=== PATIENT | female | born 1985 | race Caucasian/White ===

== ENCOUNTER 2016-02-17 09:55 | Emergency (ER) | payer OTHER ==
[2016-02-17 11:51] VITALS: BP 123/83
--- NOTE | 2016-02-17 12:24 | UC ---
Respiratory Complaint HPI - HPI Summary HPI Summary: Cough, aches, chest congestion, laryngitis starting 4 days ago. Denies trouble breathing or measured fevers. - History of Current Complaint Chief Complaint: UCRespiratory Stated Complaint: COUGH Time Seen by Provider: 02/17/16 12:01 Hx Obtained From: Patient Hx Last Menstrual Period: IUD ?: No Onset/Duration: Gradual Onset, Lasting Days Timing: Constant Severity Initially: Mild Severity Currently: Moderate Character: Cough: Productive Aggravating Factors: Exertion Alleviating Factors: Bronchodilator, Upright Position Associated Signs And Symptoms: Positive: Chills, URI, Nasal Congestion. Negative: Fever - Allergies/Home Medications Allergies/Adverse Reactions: Allergies Allergy/AdvReac Type Severity Reaction Status Date / Time Penicillins Allergy Hallucinati Verified 02/17/16 11:51 ons PMH/Surg Hx/FS Hx/Imm Hx Endocrine History Of: Denies: Diabetes, Thyroid Disease, Hypothyroidism Cardiovascular History Of: Denies: Cardiac Disorders, Hypertension Respiratory History Of: Reports: Asthma Denies: COPD GI/ History Of: Denies: Ulcer Psychological History Of: Denies: Anxiety, Depression - Surgical History Surgical History: Yes Surgery Procedure, Year, and Place: appy; tonsils. - Family History Known Family History: Positive: Hypertension - Social History Occupation: Employed Full-time Lives: With Family Alcohol Use: Rare Substance Use Type: None Smoking Status (MU): Never Smoked Tobacco - Immunization History Most Recent Influenza Vaccination: fall 2012 Most Recent Tetanus Shot: up to date Review of Systems Constitutional: Chills, Fatigue Skin: Negative Eyes: Negative ENT: Sore Throat, Nasal Discharge Respiratory: Cough Cardiovascular: Negative Gastrointestinal: Negative Genitourinary: Negative Motor: Negative Neurovascular: Negative Musculoskeletal: Negative Neurological: Negative Psychological: Negative All Other Systems Reviewed And Are Negative: Yes Physical Exam Triage Information Reviewed: Yes Appearance: Well-Appearing, No Pain Distress, Obese Vital Signs: Initial Vital Signs Temp 98.9 F 02/17/16 11:48 Pulse 80 02/17/16 11:48 Resp 20 02/17/16 11:48 BP 123/83 02/17/16 11:48 Pulse Ox 100 02/17/16 11:48 Vital Signs Reviewed: Yes Eye Exam: Normal Eyes: Positive: Conjunctiva Clear ENT: Positive: Hearing grossly normal, Pharynx normal, Nasal congestion, TMs normal, Muffled/hoarse voice - hoarseness Dental Exam: Normal Neck exam: Normal Neck: Positive: Supple, Nontender, No Lymphadenopathy Respiratory: Positive: Chest non-tender, Lungs clear, Normal breath sounds, No respiratory distress, No accessory muscle use Cardiovascular Exam: Normal Cardiovascular: Positive: RRR, No Murmur Musculoskeletal Exam: Normal Neurological Exam: Normal Psychological Exam: Normal Skin Exam: Normal UC Diagnostic Evaluation - Laboratory O2 Sat by Pulse Oximetry: 100 Respiratory Course/Dx - Differential Dx/Diagnosis Provider Diagnoses: URI, likely viral. laryngitis Discharge - Discharge Plan Condition: Stable Disposition: HOME Prescriptions: Guaifenesin-Codeine [Guaiatussin AC] 5 - 10 ml PO Q6H #120 ml MDD 40mL Patient Education Materials: Acute Bronchitis (ED), Laryngitis (ED) Forms: *Work Release Referrals: Gina Dooley MD [Primary Care Provider] - If Needed Additional Instructions: Call or return if you develop increasing fever, shortness of breath, chest pain , bloody sputum, or otherwise worsen. If you have not improved at all after several days, contact your primary care physician or return here.
== END 2016-02-17 12:21 | disposition home or self-care (01) ==
LOC: UCEAST 09:55
DX: J04.0 Acute laryngitis (principal)
CPT/HCPCS: 99212; G0463

== ENCOUNTER 2016-03-04 14:07 | Emergency (ER) | payer OTHER ==
[2016-03-04 14:31] VITALS: BP 138/82
--- NOTE | 2016-03-04 14:48 | UC ---
Eye Complaint HPI - HPI Summary HPI Summary: 31 year old female with complaints of left eye pain and swelling on the lower lid x 3 days. Pt states the painful with first symptoms but warm packs last evening has relieved the discomfort. Denies visual disturbance. Reports using old contacts because her contacts are back ordered. - History of Current Complaint Chief Complaint: UCEye Stated Complaint: EYE COMPLAINT Time Seen by Provider: 03/04/16 14:35 Hx Obtained From: Patient Hx Last Menstrual Period: iud ?: No Onset/Duration: Sudden Onset, Lasting Days - 3, Still Present Timing: Constant Severity Initially: Mild Severity Currently: Mild Aggravating Factor(s): Nothing Alleviating Factor(s): Nothing Associated Signs And Symptoms: Positive: Swelling - lower lateral left lid. Negative: Photophobia, Drainage (Clear), Drainage (Purulent), Vision Impairment Bilateral, Vision Impairment Right, Vision Impairment Left, Fever Related History: Other - stye - Risk Factors Penetrating Injury Risk Factor: Negative Globe Rupture Risk Factors: Negative Acute Glaucoma Risk Factors: Negative Optic Artery Occlusion Risk Factors: Negative - Allergies/Home Medications Allergies/Adverse Reactions: Allergies Allergy/AdvReac Type Severity Reaction Status Date / Time Penicillins Allergy Hallucinati Verified 02/17/16 11:51 ons Home Medications: Home Medications Cholecalciferol TAB* [Vitamin D TAB*] 1,000 unit PO DAILY 03/04/16 [History Confirmed 03/04/16] PMH/Surg Hx/FS Hx/Imm Hx Previously Healthy: Yes Endocrine History Of: Denies: Diabetes, Thyroid Disease, Hypothyroidism Cardiovascular History Of: Denies: Cardiac Disorders, Hypertension Respiratory History Of: Reports: Asthma Denies: COPD GI/ History Of: Denies: Ulcer Psychological History Of: Denies: Anxiety, Depression - Surgical History Surgical History: Yes Surgery Procedure, Year, and Place: appy; tonsils. - Family History Known Family History: Positive: Hypertension - mother, Diabetes - maternal grandfather - Social History Occupation: Employed Full-time Alcohol Use: Rare Substance Use Type: None Smoking Status (MU): Never Smoked Tobacco - Immunization History Most Recent Influenza Vaccination: fall 2012 Most Recent Tetanus Shot: up to date Review of Systems Constitutional: Negative Skin: Negative Eyes: Eye Redness - at left bottom lid ENT: Negative Respiratory: Negative Cardiovascular: Negative Gastrointestinal: Negative Genitourinary: Negative Motor: Negative Neurovascular: Negative Musculoskeletal: Negative Neurological: Negative Psychological: Negative All Other Systems Reviewed And Are Negative: Yes Physical Exam Triage Information Reviewed: Yes Appearance: Well-Appearing, No Pain Distress, Well-Nourished Vital Signs: Initial Vital Signs Temp 96.7 F 03/04/16 14:25 Pulse 80 03/04/16 14:25 Resp 16 03/04/16 14:25 BP 138/82 03/04/16 14:25 Pulse Ox 100 03/04/16 14:25 Vital Signs Reviewed: Yes Eyes: Positive: Conjunctiva Clear, Other: - PERRLA with good ocular movement. Left lower lateral lid with small erythematous papule. Mildly tender to touch.. Negative: Discharge ENT: Positive: Hearing grossly normal. Negative: Nasal congestion, Nasal drainage Neck: Positive: Supple, Nontender, No Lymphadenopathy Respiratory: Positive: Lungs clear, Normal breath sounds Cardiovascular: Positive: RRR, No Murmur Musculoskeletal: Positive: Strength Intact, ROM Intact Neurological: Positive: Alert, Muscle Tone Normal Psychological: Positive: Age Appropriate Behavior - pleasant and cooperative Skin: Negative: rashes, breakdown Eye Complaint Course/Dx - Differential Dx/Diagnosis Differential Diagnosis/HQI/PQRI: Conjunctivitis Provider Diagnoses: left lower eye lid Discharge - Discharge Plan Condition: Stable Disposition: HOME Prescriptions: Erythromycin TOPICAL GEL* [Erythromycin OPTH OINT*] 1 applic TOPICAL Q4H #1 tube Patient Education Materials: Ubaldo (ED), Erythromycin (Into the eye) Additional Instructions: Do not wear your contacts while using the eye ointment The best treatment is warm compresses. Use them as we discussed. I encourage you to wash your lash lines with baby shampoo once a day for the next 2 weeks Discard your eye makeup and get new once your infection has resolved
== END 2016-03-04 15:04 | disposition home or self-care (01) ==
LOC: UCEAST 14:07
DX: H00.015 Hordeolum externum left lower eyelid (principal); Z88.0 Allergy status to penicillin
CPT/HCPCS: 99212; G0463

== ENCOUNTER 2016-04-21 07:25 | Inpatient (IN) | payer OTHER ==
--- NOTE | 2016-04-09 00:55 | HP ---
ADMISSION HISTORY AND PHYSICAL: DATE OF ADMISSION: 04/21/16 ATTENDING SURGEON: Dr. Tommy Laughlin. CHIEF COMPLAINT: Morbid obesity. HISTORY OF PRESENT ILLNESS: This is a 31-year-old generally healthy female who first presented to our office in October [address] Barrera for surgical evaluation of morbid obesity. She has completed 6 months of medically supervised weight loss. Baseline lab work included normal TSH in September 2015, a normal serum morning cortisol in November. Her vitamin D level was slightly low at 24.5 and she has been on replacement since. The remainder of her lab work was essentially within normal limits. An upper GI study was done on and was normal. An ultrasound of the right upper quadrant was on the same date and showed normal gallbladder without cholelithiasis. EGD was performed on 01/29/[address] Gutierrez Echeverria, this being an essentially normal study with the exception of some mild acute esophagitis by pathology from esophageal biopsies. Biopsies of the gastric mucosa were negative for H. pylori. Dr. Laughlin has met with the patient on a number of occasions and she understands the indications, risks, benefits, and alternatives of surgery. She understands the expected perioperative course. She has already initiated her preoperative diet. She would like to proceed as scheduled with laparoscopic Jairo-en-Y gastric bypass. PAST MEDICAL HISTORY: Morbid obesity, nephrolithiasis, migraine headaches, mild seasonal asthma. PAST SURGICAL HISTORY: x1 via low-transverse incision, tonsillectomy remotely, open appendectomy remotely, LEEP procedure (she has experienced significant postoperative nausea and vomiting). CURRENT MEDICATIONS: 1. Magnesium gluconate 500 mg 2 tablets daily (for migraine prophylaxis). 2. Vitamin D 1000 International Units 2 tablets once daily. 3. Zofran 4 mg ODT p.r.n. for migraine-related nausea. 4. Sumatriptan 50 mg daily p.r.n. for migraines (uses rarely). 5. Mirena IUD. 6. Multivitamin once daily. 7. Albuterol MDI p.r.n. 8. Syql-zom-rrwfics hydrocortisone cream for eczema. FAMILY HISTORY: Significant for mother, who had a DVT. No additional family history of thromboembolic disease. No family history of anesthesia problems or bleeding disorder. SOCIAL HISTORY: The patient lives with her boyfriend and her daughter. 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 She denies the use of tobacco. She drinks on average 2 drinks per month. She denies any other recreational drug use. REVIEW OF SYSTEMS: General: No recent constitutional symptoms or acute illnesses. She has actually gained weight during preoperative period (13 pounds net). Cardiovascular: No history of hypertension, chest pain, or palpitations. Respiratory: Mild seasonal asthma as noted above. No recent exacerbations. No chronic cough or shortness of breath. GI: Mild occasional GERD symptoms, but does not require regular use of antacids. She did take Zantac for a period of time following her EGD, but not at the present time. : No problems reported. No recent problems related to her nephrolithiasis. CARD BOXER: She is up- to-date within the past 2 years for pelvic exam and Pap smear as well as breast exam, all reportedly normal. Endocrine: No diabetes or thyroid dysfunction. PHYSICAL EXAMINATION GENERAL: Well-nourished, morbidly obese female, in no acute distress. VITAL SIGNS: Height 5 feet, weight 240 pounds (BMI 46.9). Other vital signs per nursing. SKIN: Warm and dry. No suspicious rashes or lesions. HEENT: Pupils are equal and round, reactive. EOMs intact. No conjunctival pallor. Oropharynx: Teeth in good repair. No intraoral lesions. NECK: No lymphadenopathy, thyromegaly, or masses. HEART: Regular rate and rhythm. No murmur noted. LUNGS: Clear to auscultation. No wheezes. BREASTS: Not examined. ABDOMEN: Soft, nontender to palpation. Well healed surgical scars in the suprapubic area and right lower quadrant. Abdomen soft, nontender, and without palpable masses or organomegaly. GENITALIA: Not done. RECTAL: Not done. BACK: No spinous process or CVA tenderness. EXTREMITIES: No edema. NEUROLOGICAL: Grossly intact. IMPRESSION: Morbid obesity. PLAN: Laparoscopic Jairo-en-Y gastric bypass. CAROLYN KNUTSON CC: Dr. Barrera; Dr. Gina Dooley, [facility]* [id number]/[facility] [place] #: [id number] [facility]
[~2016-04-21 07:25] MED LIST: Buffered Lidocaine 1% SYR 3ML* 3 ML/SYR SYRINGE INTRADERM ONE; Clindamycin 900 MG IVPREMIX(* 900 MG/50 ML SDV IV ONE; Famotidine IV* 10 MG/ML 2 ML (20 mg) IV ONE; Famotidine IV* 10 MG/ML 2 ML (20 mg) ONE; Heparin VIAL(*) 5000 UNITS/ML VIAL (FIVE THOUSAND) ONE; Metoclopramide TAB* 10 MG ONE; Metoclopramide TAB* 10 MG PO ONE; ceFAZolin 2 GM PREMIX (*) 2 GM/50 ML BAG IVPB ONE
[2016-04-21] MEDS ORDERED: Methylene Blue 1%* 10 ML VIAL ONE (07:49)
[2016-04-21] MEDS ORDERED: Bupivacaine 0.5% W/EPI SDV* 30 ML VIAL ONE (07:49)
[2016-04-21] MEDS ORDERED: Scopolamine 1.5 mg* PATCH ONE (07:52)
[2016-04-21] MEDS ORDERED: Midazolam* 1 MG/ML 5 ML VIAL (5 MG) ONE (08:13)
[2016-04-21] MEDS ORDERED: Propofol* 10 MG/ML 20 ML BTL IV PUSH ONE (08:13)
[2016-04-21] MEDS ORDERED: KETAMINE HCL* 50 MG/ML 10 ML VIAL ONE (08:13)
[2016-04-21] MEDS ORDERED: Ondansetron INJ* 2 MG/ML VIAL ONE ×2 (08:13→11:45)
[2016-04-21] MEDS ORDERED: Rocuronium* 10 MG/ML VIAL ONE (08:13)
[2016-04-21] MEDS ORDERED: Lidocaine 2% PF * 5 ML VIAL ONE (08:13)
[2016-04-21] MEDS ORDERED: Ketorolac INJ* 30 MG/ML 1 ML VIAL ONE (08:13)
[2016-04-21] MEDS ORDERED: Dexamethasone IV* 4 MG/ML 1 ML (4 MG) ONE (08:13)
[2016-04-21] MEDS ORDERED: fentaNYL* 50 MCG/ML 5 ML VIAL (250 MCG VIAL) ONE (08:13)
[2016-04-21 08:53] LABS: Manual Entry Verification AS; UR Preg Internal Control QC Line Present; UR Preg Kit Lot# 6060104
[2016-04-21] MEDS ORDERED: Glycopyrrolate IV* 0.2 MG/ML 1 ML VIAL ONE (09:50)
[2016-04-21] MEDS ORDERED: EPHEDrine (Pressors)* 50 MG/ML VIAL ONE (09:50)
[2016-04-21] MEDS ORDERED: Ondansetron INJ* 2 MG/ML VIAL IV PRN ×2 (10:09→11:30)
[2016-04-21] MEDS ORDERED: DiMENhydriNATE IV* 50 MG/ML VIAL IV PUSH PRN (10:09)
[2016-04-21] MEDS ORDERED: Levalbuterol 0.63MG/3ML NEB INH PRN (10:09)
[2016-04-21] MEDS ORDERED: fentaNYL* 50 MCG/ML 2 ML VIAL (100 MCG VIAL) IV PRN (10:09)
[2016-04-21] MEDS ORDERED: HYDROmorphone INJ* 1 MG/ML CARPUJECT SYRINGE IV PRN ×2 (10:09→11:30)
[2016-04-21] MEDS ORDERED: fentaNYL* 50 MCG/ML 2 ML VIAL (100 MCG VIAL) ONE (10:48)
[2016-04-21] MEDS ORDERED: HYDROcodone/ACET. 7.5/325 LIQ* 15 ML UDC PO PRN (11:30)
[2016-04-21] MEDS ORDERED: diPHENhydraMINE IV* 50 MG/ML 1 ml VIAL (BENADRYL) SLOW PUSH PRN (11:30)
[2016-04-21] MEDS ORDERED: Acetaminophen ADULT LIQ* 650 MG/20.3 ML UDC PO PRN (11:30)
[2016-04-21] MEDS ORDERED: ALBUTEROL SULFATE 108 MCG IN PRN (11:32)
[2016-04-21] MEDS ORDERED: DiMENhydriNATE IV* 50 MG/ML VIAL ONE (12:07)
[2016-04-21] MEDS ORDERED: PROCHLORPERAZINE INJ 5 MG/ML 2 ML VIAL ONE (12:34)
[2016-04-21] MEDS: Ketorolac INJ* 30 MG/ML 1 ML VIAL IV PRN (17:50)
[2016-04-21] MEDS: Famotidine IV * 20 MG in NS 0.9% 100 ML* 100 ML IVPB SCH (19:56)
[2016-04-22] MEDS: Ketorolac INJ* 30 MG/ML 1 ML VIAL IV PRN ×2 (06:00→13:45)
[2016-04-22] MEDS: Famotidine IV * 20 MG in NS 0.9% 100 ML* 100 ML IVPB SCH ×2 (08:04→20:04)
--- NOTE | 2016-04-22 09:01 | PN ---
Progress Note - Progress Note Note: S: POD #1. Doing well. Thirsty. Some edema of hands and feet (see I/O), improving. Pain controlled. OOB. O: Vital Signs - 8 hr 04/22/16 04/22/16 03:52 07:23 Temperature 98.6 F 98.5 F Pulse Rate 84 86 Respiratory 16 16 Rate Blood Pressure 139/79 133/83 (mmHg) O2 Sat by Pulse 99 98 Oximetry Intake and Output Last 24 Hours 04/20/16 04/21/16 04/22/16 04/23/16 06:59 06:59 06:59 06:59 Intake Total 5063 Output Total 5375 Balance -312 Weight 234 lb Intake: IV Fluids 5063 CLINDAMYCIN 900 MG 50 LR 4860 NS 50ML, Cefazolin 2G 50 PB - FAMOTIDINE 103 Oral 0 Output: Barajas 5375 Other: Estimated Blood Loss MINIMAL Comment Heart: reg Lungs: clear ant Abd: hypoactive BS; dsgs clean/dry; soft; mild tenderness Extr: both hands puffy, nontender; feet less. A/P: s/p Lap RYGB will decr IVF; start perry clears; d/c Karl
--- NOTE | 2016-04-22 10:33 | PN ---
Progress Note - Progress Note SOAP: Subjective: Pain controlled. No further nausea. Taking sips. Barajas was removed. Objective: Vital Signs Temp 98.5 F 04/22/16 07:23 Pulse 86 04/22/16 07:23 Resp 18 04/22/16 08:00 BP 133/83 04/22/16 07:23 Pulse Ox 98 04/22/16 08:00 Intake & Output 04/21/16 04/22/16 04/22/16 18:59 06:59 18:59 Intake Total 3000 2063 Output Total 2825 2550 400 Balance 175 -487 -400 Weight 234 lb Intake: IV Fluids 3000 2063 CLINDAMYCIN 900 MG 50 LR 2900 1960 NS 50ML, Cefazolin 2G 50 PB - FAMOTIDINE 103 Oral 0 Output: Urine 400 Barajas 2825 2550 Other: Estimated Blood Loss MINIMAL Comment NAD Abdomen: incis c/d i no erythema; soft; min tender. Assessment: POD#1 s/p LRYGB; doing well. Plan: Clears. Likely home in AM. Ok to shower later today. Ambulate.
[2016-04-22] MEDS: D5W 1/2 NS KCl 20 Meq 1000 ML* 1,000 ML IV SCH (11:34)
--- NOTE | 2016-04-22 15:58 | OP ---
DATE OF OPERATION: 04/21/16 - ROOM #350 DATE OF : 85 SURGEON: Tommy Laughlin MD POWER SYSTEM OPERATOR: Dr. Roberson. ANESTHESIOLOGIST: Barak Che MD. ANESTHESIA: General endotracheal. PRE-OP DIAGNOSIS: Morbid obesity. POST-OP DIAGNOSIS: Morbid obesity. OPERATIVE PROCEDURE: Laparoscopic Jairo-en-Y gastric bypass. ESTIMATED BLOOD LOSS: Minimal. IV FLUIDS: Crystalloids. SPECIMENS: None. DRAINS: None. COMPLICATIONS: None. COUNTS: The instrument, needle and sponge count were correct. DESCRIPTION OF PROCEDURE: The patient was brought to the operating room and placed on table supine. Sequential compression devices were placed on both lower extremities. General anesthesia was administered. She had a Barajas catheter placed and she was positioned and padded appropriately. She received appropriate intravenous antibiotics. Her abdomen was prepped and draped in the usual sterile fashion. Time-out was performed. Local anesthetic was infiltrated into the skin and soft tissue prior to making each incision. Entry to the abdomen was through a left upper quadrant incision accommodating a 12 mm optical trocar. After accessing the peritoneal cavity, carbon dioxide was insufflated to a pressure of 15 mmHg. After adequate pneumoperitoneum, a 12 mm bladeless trocar was placed under direct visualization in the supraumbilical midline and also in the right upper quadrant. 5 mm trocars were placed in the right upper quadrant medially and left upper quadrant laterally. A Geremias retractor was placed percutaneously in the subxiphoid position and used to elevate the left lobe of the liver. Inspection of the peritoneal cavity revealed there were adhesions of omentum into the pelvis. The liver, stomach and small intestine appeared grossly normal. Adhesiolysis was performed fraying the omentum using a LigaSure. Next , the gastric pouch was created. The cardia of the stomach was bluntly freed from the left abdon of the diaphragm. Perigastric dissection was then undertaken on the lesser curvature of the stomach at the lesser sac and with several firings of the EndoGIA stapler with hart cartridges, the gastric pouch was created approximately 15 to 20 mL volume. Staple lines were noted to be intact and hemostatic. The omentum was retracted superiorly along with the transverse colon and then the ligament of Treitz was identified. The jejunum was measured out approximately 40 to 50 cm and this loop of jejunum was then brought proximity to the gastric pouch and that was sutured to the left lateral staple line with interrupted 2-0 silks. Subsequently, the gastrojejunal anastomosis was performed with a linear stapler using a 30 mm hart cartridge. After creating the gastrotomy in the distal portion of the pouch and the corresponding enterotomy in the jejunum, the anastomosis was performed with the stapler and then the common gastroenterotomy was closed with 3-0 Maxon running from each end and tying in the middle, and this was performed over a 36-Arabic gastric lavage tube. The loop of jejunum was then divided at the left side of the gastric pouch and the anastomosis was then tested with methylene blue dye solution instilled through the orogastric tube. No leak was identified. The Jairo limb was then measured out for a 75 cm Jairo limb and at this point a functional end-to-side jejunojejunostomy was created with a 60 mm linear YAZAN with hart cartridge. The common enterotomy was again run, closed with 3-0 Maxon , and the mesenteric defect at the jejunojejunostomy closed with 3-0 silk in a running locking fashion. After assuring hemostasis, the Geremias liver rectractor and ports were removed under direct visualization. Carbon dioxide was released. The ports were removed and the skin was closed with jayshree. The patient tolerated the procedure well, she was extubated uneventfully and she transferred to the recovery room in stable condition. CC: Gina Dooley MD* [id number]/[facility] #: [id number] Monique- [id number]/[facility] #: [id number] SIMON
--- NOTE | 2016-04-22 16:14 | OP ---
CC: Gina Dooley MD OPERATIVE REPORT: * ADDENDUM: DESCRIPTION OF PROCEDURE: The omentum was retracted superiorly along with the transverse colon and then a ligament of Treitz was identified. The jejunum was measured out approximately 40 to 50 cm and this loop of jejunum was then brought proximity to the gastric pouch and that was sutured to the left lateral staple line with interrupted 2-0 silks. Subsequently, the gastrojejunal anastomosis was performed with a linear stapler using a 30 mm hart cartridge. After creating the gastrotomy in the distal portion of the pouch and the corresponding enterotomy in the jejunum, the anastomosis was performed with the stapler and then the common gastroenterotomy was closed with 3-0 Maxon running from each end and tying in the middle, and this was performed over a 36-Telugu gastric lavage tube. The loop of jejunum was then divided at the left side of the gastric pouch and the anastomosis was then tested with methylene blue dye solution instilled through the orogastric tube. No leak was identified. The Jairo limb was then measured out for a 75 cm Jairo limb and at this point a functional end-to-side jejunojejunostomy was created with a 60 mm linear YAZAN with hart cartridge. The common enterotomy was again run closed with 3-0 Maxon and the mesenteric defect at the jejunojejunostomy closed with 3-0 silk in a running locking fashion. After assuring hemostasis, the Geremias liver rectractor and ports were removed under direct visualization. Carbon dioxide was released. The ports were removed and the skin was closed with jayshree. The patient tolerated the procedure well, she was extubated uneventfully and she transferred to the recovery room in stable condition. [id number]/[facility] #: [id number] [facility] CENTERVane
[2016-04-23] MEDS: D5W 1/2 NS KCl 20 Meq 1000 ML* 1,000 ML IV SCH (06:27)
[2016-04-23] MEDS: Famotidine IV * 20 MG in NS 0.9% 100 ML* 100 ML IVPB SCH (07:28)
[2016-04-23 08:17] VITALS: BP 118/75
--- NOTE | 2016-04-23 11:32 | SURGPN ---
Subjective - Introduction -: Doing very well, no complaints. Ready to go home. - Medications -: Active Medications Generic Name Dose Route Start Last Admin Trade Name Freq PRN Reason Stop Dose Admin Acetaminophen 650 mg 04/21/16 11:30 Tylenol Adult Liq* PO Q6H PRN Temp > 101 F Or Mild Pain Hydrocodone Bitart/Acetaminophen 15 ml 04/21/16 11:30 04/22/16 21:40 Nortab 7.5/325 Liq* PO 15 ml Q6H PRN Administration PAIN Diphenhydramine HCl 25 mg 04/21/16 11:30 Benadryl Iv* SLOW PUSH Q6H PRN ITCHING Hydromorphone HCl 0.5 mg 04/21/16 11:30 04/21/16 21:00 Dilaudid Iv* IV 0.5 mg Q3H PRN Administration PAIN - SEVERE Potassium Chloride/Dextrose 1,000 mls @ 50 mls/hr 04/22/16 11:31 04/23/16 06: 27 D5w 1/2 Ns Kcl 20 Meq 1000 Ml* IV 50 mls/hr PER RATE ALEX Administration Famotidine 20 mg/ Sodium 102 mls @ 408 mls/hr 04/21/16 20:00 04/23/16 07:28 Chloride IVPB 408 mls/hr Q12H ALEX Administration Ketorolac Tromethamine 30 mg 04/21/16 11:30 04/22/16 13:45 Toradol Inj* IV 04/23/16 11:32 30 mg Q6H PRN Administration PAIN Non-Formulary Medication 108 mcg 04/21/16 11:32 Albuterol Sulfate [Proair Respiclick] IN Q4H PRN SHORTNESS OF BREATH Ondansetron HCl 4 mg 04/21/16 11:30 04/21/16 17:50 Zofran Inj* IV 4 mg Q6H PRN Administration NAUSEA/VOMITING Objective - Objective -: Awake and alert, sitting on bed. Appears comfortable and in NAD. - Intake and Output -: Intake & Output 04/21/16 04/22/16 04/23/16 04/24/16 06:59 06:59 06:59 06:59 Intake Total 5063 2673 Output Total 5385 6790 400 Balance -312 623 -400 Weight 234 lb Intake: IV Fluids 5063 990 CLINDAMYCIN 900 MG 50 D5W 1/2 NS 20 meq KCL 937 LR 4860 NS 50ML, Cefazolin 2G 50 PB - FAMOTIDINE 103 53 IVPB 1128 LR 1128 Oral 0 555 Output: Urine 2050 400 Barajas 5375 Other: Estimated Blood Loss MINIMAL Comment Surgical Physical Exam - Comments -: Vitals reviewed, Afebrile. Abdomen soft, non-tender and non-distended. Incisions clean, dry and intact. Dressing removed. Assessment and Plan - Assessment -: A 31 y/o female, s/p laparoscopic jose-en-Y gastric bypass, doing well. - Plan Surgical Plan of Care: Discharge Additional Comments: She is stable for discharge. Discussed with her all d/c instructions, and will F /U with next week.
--- NOTE | 2016-04-23 12:02 | PN ---
Progress Note - Progress Note SOAP: Subjective: Feels well. Pain controlled and no N/V. Ramirez po well. Objective: Vital Signs Temp 98.1 F 04/23/16 07:35 Pulse 75 04/23/16 07:35 Resp 18 04/23/16 08:00 BP 118/75 04/23/16 07:35 Pulse Ox 100 04/23/16 08:00 Intake & Output 04/22/16 04/23/16 04/23/16 18:59 06:59 18:59 Intake Total 1218 1455 Output Total 1850 200 400 Balance -632 1255 -400 Intake: IV Fluids 990 D5W 1/2 NS 20 meq KCL 937 PB - FAMOTIDINE 53 IVPB 1128 LR 1128 Oral 90 465 Output: Urine 1850 200 400 Assessment: POD#2 s/p LRYGB. Doing well. Plan: Home today. Diet and activity reviewed. RTO 1 wk for jayshree.
--- NOTE | 2016-04-25 02:23 | DS ---
DISCHARGE SUMMARY: DATE OF ADMISSION: 04/21/16 DATE OF DISCHARGE: 04/23/16 ADMITTING PHYSICIAN: Tommy Laughlin MD PATIENT OF: Tommy Laughlin MD ADMISSION DIAGNOSIS: Morbid obesity. DISCHARGE DIAGNOSIS: Morbid obesity. CONSULTATIONS: None. PROCEDURE: Laparoscopic Jairo-en-Y gastric bypass on 04/21/16. BRIEF MEDICAL HISTORY: Mrs. Pelaez is a pleasant 31-year-old healthy female who presented to our schuster rgical office back in October of last year for evaluation of morbid obesity. The patient had comp leted 6 months of medically supervised weight loss. She underwent a psych evaluation and sleep stud ies. Her baseline blood work included normal TSH as well as a normal serum morning cortisol back in November. She had an EGD performed back in January of last year by Dr. Echeverria that was essentially nor mal. After she had evaluation of her morbid obesity, she was advised to proceed with a laparoscopic Jairo-en-Y gastric bypass to be performed on a later date. HOSPITAL COURSE: The patient was admitted on the same day in anticipation for surgery. Her surgery went very well. There was no immediate postop complications. After recovery, the patient was admit [place] to the surgical floor for observation. She did extremely well. There was only mild incisional t enderness on the first day postoperatively. Her vitals remained stable and she was afebrile and not tachycardic. Her intake and output was essentially within normal range. She was ambulatory on the first day postop and she started her stage I bariatric diet on the same day. Her incision on exam were clean and dry and she continued to improve. She was seen on the second day postoperatively and she continued to improve. Her pain was very minimal and her vitals remained stable. We discussed with her old discharge planning and she was scheduled to be seen in the office next week as an outpa tient. DISCHARGE MEDICATIONS: Included Vicodin elixir as needed for pain. Her home medications also included: 1. Albuterol ProAir nebulizer 108 mcg every 4 hours as needed for shortness of breath. 2. She also was on magnesium 100 mg p.o. every day. 3. Imitrex 50 mg p.o. b.i.d. as needed for migraine headaches. PROBLEM LIST: Morbid obesity, status post laparoscopic Jairo-en-Y gastric bypass on 04/21/16. CAROLYN GOMEZ [id number]/[facility] #: [id number]
== END 2016-04-23 12:15 | disposition home or self-care (01) | DRG 403 ==
LOC: AA 07:25 → SSU 12:59
PROVIDERS: ADMIT Surgery; ATTEND Surgery
PROC: 0D164ZA Bypass Stomach to Jejunum, Percutaneous Endoscopic Approach (ICD-10-PCS; principal; 2016-04-21 08:45)
DX: E66.01 Morbid (severe) obesity due to excess calories (principal); G43.909 Migraine, unspecified, not intractable, without status migrainosus; Z88.0 Allergy status to penicillin; Z68.42 Body mass index [BMI] 45.0-49.9, adult; Z87.442 Personal history of urinary calculi; J45.998 Other asthma
CPT/HCPCS: 81025; A9270-GY; C1776; J0690; J0780; J1100; J1170; J1240; J1644; J1885; J2250; J2405; J2704; J3010